=== PATIENT | female | born 1955 | race Hispanic/Latino ===

== ENCOUNTER 2018-03-31 13:08 | Outpatient (CLI) | payer OTHER ==
--- NOTE | 2018-04-01 10:12 | Mammography Report ---
BILATERAL DIGITAL SCREENING MAMMOGRAM with CAD: 03/31/18 CLINICAL: Routine screening. COMPARISON:None available. The patient brought a CD from [facility] but it only contains an image of a mammo-information sheet from 09/17/16. No images are included on the CD. FINDINGS: The breasts are heterogeneously dense, which may obscure small masses. A left asymmetry with architectural distortion on the MLO view and possible correlation on the CC view requires comparison with a prior mammogram or additional imaging.No suspicious calcifications.The right breast is negative. IMPRESSION: Left asymmetry requiring further evaluation. BI-RADS CATEGORY: 0 -- Additional Evaluation Required RECOMMENDATION: Comparison with a previous mammogram. We will attempt to obtain a prior mammogram for comparison. If we do not obtain a prior mammogram within 30 days, a revised report will be issued recommending a recall for additional imaging. Please be advised that the patient should not schedule an appointment for return until adequate time (at least 2 weeks) has passed for us to obtain the prior mammogram. ACR BI-RADS MAMMOGRAPHIC CODES: 0 = Needs additional imaging evaluation; 1 = Negative; 2 = Benign; 3 = Probably benign; 4 = Suspicious; 5 = Malignant; 6 = Known biopsy-proven malignancy COMMENT: 1. Dense breast tissue, i.e., adenosis, fibrocystic changes, etc., may obscure an underlying neoplasm. 2. Approximately 10% of cancers are not detected with mammography. 3. A negative mammography report should not delay biopsy if a clinically suspicious mass is present. COMMENT: Patient follow-up letters are generated via our [employer] application.
== END 2018-03-31 13:09 | disposition home or self-care (01) ==
LOC: SPVWC 13:08
PROVIDERS: ATTEND Internal Medicine
DX: Z12.31 Encounter for screening mammogram for malignant neoplasm of breast (principal)
CPT/HCPCS: 77067

== ENCOUNTER 2018-05-02 12:38 | Observation (INO) | payer OTHER ==
[2018-05-02] MEDS ORDERED: SODIUM CHLORIDE FLUSH SYRINGE 10 ML IV PRN (13:02)
[2018-05-02] MEDS ORDERED: ZOFRAN IV PRN (13:02)
[2018-05-02] MEDS ORDERED: TYLENOL PO PRN (13:02)
[2018-05-02] MEDS ORDERED: PROVENTIL IH PRN (13:02)
--- NOTE | 2018-05-02 13:02 | History and Physical Report ---
History of Present Illness Chief complaint: I feel weak History of present illness: 62 YO Female with HTN, Anemia, Asthma, OA admitted directly to hospitalist service at the request of Dr. Harkins for Symptomatic Anemia. Pt states that she has experienced weakness for the past 3 weeks, with persistent symptoms over the past 1 week. Pt seen and evaluated in her PCP's office and was found to have a hemoglobin of 6.2. Pt seen and evaluated upon arrival and found to have symptomatic anemia suspected secondary to Iron Deficiency. Pt admitted to medical floor. Pt denies fever, chills, CP, Palpitations, NVD, Syncope, BRBPR, unintentional weight loss, or night sweats. Past History Past Medical History: anemia, arthritis, hypertension Past Surgical History: Other (EGD, Colonoscopy) Social history: . denies: smoking, alcohol abuse, prescription drug abuse Family history: no significant family history, other (reviewed) Medications and Allergies Allergies Allergy/AdvReac Type Severity Reaction Status Date / Time Penicillins AdvReac Vomiting Verified 05/02/18 13:30 Review of Systems Constitutional: fatigue, weakness, no weight loss, no weight gain, no fever, no chills Ears, nose, mouth and throat: no ear pain, no ear discharge, no tinnitis, no decreased hearing, no nose pain, no nasal congestion, no nasal discharge Breasts: no change in shape, no swelling, no mass Cardiovascular: no chest pain, no orthopnea, no palpitations, no rapid/ irregular heart beat, no edema, no shortness of breath Respiratory: no cough, no cough with sputum, no excessive sputum, no hemoptysis , no shortness of breath Gastrointestinal: no abdominal pain, no nausea, no vomiting, no constipation, no hematemesis, no coffee ground emesis, no BRBPR, no melena, no hematochezia, no loss of appetite, no early satiety, no heartburn, no excessive gas, no jaundice, no dyspepsia/bloating Genitourinary Female: no pelvic pain, no flank pain, no menorrhagia, no dysuria Rectal: no pain, no incontinence, no bleeding Musculoskeletal: no neck stiffness, no neck pain, no shooting arm pain, no arm numbness/tingling, no low back pain Integumentary: no rash, no pruritis, no redness, no sores, no wounds Neurological: no paralysis, no weakness, no parathesias, no numbness, no tingling, no seizures Psychiatric: no anxiety, no memory loss, no change in sleep habits, no sleep disturbances, no insomnia, no hypersomnia, no change in appetite Endocrine: no cold intolerance, no heat intolerance, no polyphagia, no excessive thirst, no polydipsia, no polyuria, no nocturia Hematologic/Lymphatic: no easy bruising, no easy bleeding, no lymphadenopathy, no lymphedema Allergic/Immunologic: no urticaria, no allergic rhinitis, no wheezing Exam - Constitutional General appearance: Present: mild distress - EENT Eyes: Present: PERRL ENT: hearing intact, clear oral mucosa - Neck Neck: Present: supple, normal ROM - Respiratory Respiratory effort: normal Respiratory: bilateral: CTA - Cardiovascular Heart Sounds: Present: S1 & S2. Absent: rub, click - Extremities Extremities: pulses symmetrical, No edema Peripheral Pulses: within normal limits - Abdominal General gastrointestinal: Present: soft, non-tender, non-distended, normal bowel sounds Female genitourinary: Present: normal - Integumentary Integumentary: Present: clear, warm, dry - Musculoskeletal Musculoskeletal: gait normal, strength equal bilaterally - Psychiatric Psychiatric: appropriate mood/affect, intact judgment & insight - Neurologic Neurologic: CNII-XII intact, moves all extremities Results - Labs CBC & Chem 7: 05/02/18 15:34 05/02/18 15:34 Assessment and Plan - Patient Problems (1) Symptomatic anemia Current Visit: Yes Status: Acute Plan to address problem: PRBC transfusion, serial cbc, supportive care, Outpatient workup as per PCP (2) HTN (hypertension) Current Visit: Yes Status: Acute Plan to address problem: Monitor bp q shift, resume home medication. Pt may take her home medication (3) Arthritis Current Visit: Yes Status: Acute Plan to address problem: Resume home medication. Pt may take her home medication (4) DVT prophylaxis Current Visit: Yes Status: Acute Plan to address problem: SCD to BLE while in bed.
[2018-05-02] MEDS ORDERED: NACL 0.9% 500 ML 500 ML IV ONE ×2 (15:00→18:00)
[2018-05-02 15:54] LABS: Basophils # (Auto) 0.1 K/mm3 (0.0-0.1); Basophils % (Auto) 1.1 % (0.0-1.8); Eosinophils # (Auto) 0.3 K/mm3 (0.0-0.4); Eosinophils % (Auto) 5.2 % (0.0-4.3); Hematocrit 20.8 % (30.3-42.9); Hemoglobin 6.5 gm/dl (10.1-14.3); Lymphocytes # (Auto) 1.7 K/mm3 (1.2-5.4); Lymphocytes % (Auto) 26.7 % (13.4-35.0); Mean Corpuscular HGB Conc 31 % (30-34); Mean Corpuscular Hemoglobin 22 pg (28-32); Mean Corpuscular Volume 69 fl (79-97); Monocytes # (Auto) 0.8 K/mm3 (0.0-0.8); Monocytes % (Auto) 12.2 % (0.0-7.3); Platelet Count 332 K/mm3 (140-440); Red Cell Distribution Width 17.4 % (13.2-15.2)
[2018-05-02 16:13] LABS: Alanine Aminotransferase 17 units/L (7-56); Albumin 4.3 g/dL (3.9-5); BUN/Creatinine Ratio 17; Blood Urea Nitrogen 12 mg/dL (7-17); Hemolysis Index 1
[2018-05-02] MEDS: SODIUM CHLORIDE FLUSH SYRINGE 10 ML IV SCH (23:35)
[2018-05-02] MEDS: PEPCID PO SCH (23:35)
[2018-05-03 10:45] LABS: Hematocrit 33.2 % (30.3-42.9); Hemoglobin 11.1 gm/dl (10.1-14.3)
[2018-05-03] MEDS: SODIUM CHLORIDE FLUSH SYRINGE 10 ML IV SCH (10:46)
[2018-05-03] MEDS: PEPCID PO SCH (10:46)
--- NOTE | 2018-05-03 12:09 | Discharge Summary ---
Providers - Providers Date of Admission: 05/02/18 14:23 Date of discharge: 05/03/18 Attending physician: HOMER GUERRERO Primary care physician: TATE HARKINS Hospitalization Condition: Stable Hospital course: Patient is a 62 yo woman with HTN, Anemia, Asthma, OA admitted directly to hospitalist service at the request of Dr. Harkins for Symptomatic Anemia with fatique and weakness. She had GI work up. She had negative polisher brass exam but needs repeat Mammogram. -Symptomatic Acute on chronic blood loss microcytic anemia, hgb 6.5 s/p 3 units , now 11.1 Current Visit: Yes Status: Acute Plan to address problem: PRBC transfusion, serial cbc, supportive care, Outpatient workup as per PCP Needs outpatient pill cam, has appointment with GREGORIO Ferrera on saturday Hyponatremia, hypo-osm due to hypovolemia transfused prbc -HTN (hypertension) Current Visit: Yes Status: Acute Plan to address problem: Monitor bp q shift, resume home medication. Pt may take her home medication -Arthritis Current Visit: Yes Status: Acute Plan to address problem: Resume home medication. Pt may take her home medication - DVT prophylaxis Current Visit: Yes Status: Acute Plan to address problem: SCD to BLE while in bed. Disposition: DC-01 TO HOME OR SELFCARE Time spent for discharge: 34 minutes Core Measure Documentation - Palliative Care Palliative Care/ Comfort Measures: Not Applicable - Core Measures Any of the following diagnoses?: none - VTE Discharge Requirements Deep Vein Thrombosis/Pulmonary Embolism Present on Admission: No Has pt received <5 days of overlap therapy or INR<2.0: No Anticoagulant overlap therapy prescribed at discharge: No Contraindication No Overlap Therapy order at DC: Not Indicated Exam - Physical Exam Narrative exam: GEN: WDWN, NAD, Awake, Alert, Orientated x 3 HEENT: NCAT, EOMI, PERRL, OP Clear NECK: supple, no adenopathy, no thyromegaly, no JVD CVS/HEART: RRR, normal S1S2, pulses present bilaterally CHEST/LUNGS: CTA B, Symmetrical chest expansion, good air entry bilaterally GI/Abdomen: soft, NTND, good bowel sounds, no guarding or rebound /Bladder: no suprapubic tenderness, no CVA or paraspinal tenderness EXT/Skin: no c/c/e, no obvious rash MSK: FROM x 4 Neuro: CN 2-12 grossly intact, no new focal deficits Psych: calm - Constitutional Vitals: Temp Pulse Resp BP Pulse Ox 98.1 F 68 18 146/77 98 05/03/18 05:22 05/03/18 05:22 05/03/18 05:22 05/03/18 05:22 05/03/18 05:22 Plan Activity: other (no strenous activity until cleared by pcp) Diet: low salt Additional Instructions: Keep appointment with GREGORIO Ferrera on saturday Follow up with: TATE HARKINS MD [Primary Care Provider] - 7 Days
[2018-05-03 12:34] VITALS: BP 124/59
== END 2018-05-03 13:40 | disposition home or self-care (01) ==
LOC: UNDOADMOB 12:38 → 3A 12:38
PROVIDERS: ADMIT Internal Medicine; ATTEND Internal Medicine
DX: D64.9 Anemia, unspecified (principal); I10 Essential (primary) hypertension; J45.909 Unspecified asthma, uncomplicated; M19.90 Unspecified osteoarthritis, unspecified site
CPT/HCPCS: 36415; 36430; 80053; 85014; 85018; 85025; 86850; 86900; 86901; 86920; G0378; G0379; J7040; P9016

== ENCOUNTER 2019-05-18 11:16 | Outpatient (CLI) | payer OTHER ==
--- NOTE | 2019-05-18 15:43 | Mammography Report ---
DIGITAL SCREENING MAMMOGRAM WITH CAD, 05/18/2019 INDICATION: Routine screening mammography. TECHNIQUE: Digital bilateral 2D mammography was obtained in the craniocaudal and mediolateral obliq ue projections. This examination was interpreted with the benefit of Computer-Aided Detection analysi s. COMPARISON: 03/31/2018, 09/17/2016 FINDINGS: Breast Density: The breasts are heterogeneously dense, which may obscure small masses. There is no evidence of dominant mass, suspicious calcifications or architectural distortion in eithe r breast. No interval change. IMPRESSION: No evidence of malignancy. BI-RADS Category 1: Negative. No mammographic evidence of malignancy. Recommend routine screening m ammography in one year. A "normal" or negative report should not discourage follow up or biopsy of a clinically significant f inding. A written summary of these findings will be mailed to the patient. The patient will be entered into a mammography reporting system which will generate a reminder letter for the patient's next appointmen t at the appropriate interval. The [employer] recommends yearly mammograms starting at age 40 and continuing as l michelle as a woman is in good health. Breast MRI is recommended for women with an approximate 20-25% or greater lifetime risk of breast cancer, including women with a strong family history of breast or ova cam cancer or who have been treated for Hodgkin's disease. Signer Name: Lety Thompson MD Signed: 05/18/2019 3:39 PM Workstation Name: [id number]
== END 2019-05-18 11:17 | disposition home or self-care (01) ==
LOC: SPVWC 11:16
PROVIDERS: ATTEND Internal Medicine
DX: Z12.31 Encounter for screening mammogram for malignant neoplasm of breast (principal); I10 Essential (primary) hypertension; E78.00 Pure hypercholesterolemia, unspecified; J45.909 Unspecified asthma, uncomplicated
CPT/HCPCS: 77067

== ENCOUNTER 2020-06-01 10:56 | Outpatient (CLI) | payer OTHER ==
--- NOTE | 2020-06-01 13:22 | Mammography Report ---
DIGITAL SCREENING MAMMOGRAM WITH CAD, 06/01/2020 INDICATION: Routine screening mammography. TECHNIQUE: Digital bilateral 2D mammography was obtained in the craniocaudal and mediolateral obliq ue projections. This examination was interpreted with the benefit of Computer-Aided Detection analysi s. COMPARISON: Prior mammograms 05/18/2019 and 03/31/2018 FINDINGS: Breast Density: The breasts are heterogeneously dense, which may obscure small masses. There is no evidence of dominant mass, suspicious calcifications or architectural distortion in eithe r breast. There has been no significant change compared with the prior examinations. IMPRESSION: Follow up recommendation: Routine yearly BI-RADS Category 1: Negative. A "normal" or negative report should not discourage follow up or biopsy of a clinically significant f inding. A written summary of these findings will be mailed to the patient. The patient will be entered into a mammography reporting system which will generate a reminder letter for the patient's next appointmen t at the appropriate interval. The [employer] recommends yearly mammograms starting at age 40 and continuing as l michelle as a woman is in good health. Breast MRI is recommended for women with an approximate 20-25% or greater lifetime risk of breast cancer, including women with a strong family history of breast or ova cam cancer or who have been treated for Hodgkin's disease. Signer Name: Aura Baez MD Signed: 06/01/2020 1:17 PM Workstation Name: [id number]
== END 2020-06-01 10:57 | disposition home or self-care (01) ==
LOC: SPVWC 10:56
PROVIDERS: ATTEND Internal Medicine
DX: Z12.31 Encounter for screening mammogram for malignant neoplasm of breast (principal)
CPT/HCPCS: 77067

== ENCOUNTER 2021-07-07 13:22 | Outpatient (CLI) | payer OTHER ==
--- NOTE | 2021-07-07 16:21 | Mammography Report ---
DIGITAL SCREENING MAMMOGRAM WITH CAD, 07/07/2021 CLINICAL INFORMATION / INDICATION: Routine screening mammography. TECHNIQUE: Digital bilateral 2D mammography was obtained in the craniocaudal and mediolateral obliqu e projections. This examination was interpreted with the benefit of Computer-Aided Detection analysis . COMPARISON: 06/01/2020, 05/18/2019, 03/31/2018 FINDINGS: Breast Density: The breasts are heterogeneously dense, which may obscure small masses. No dominant mass, suspicious calcifications, or architectural distortion in either breast. IMPRESSION: No mammographic evidence of malignancy. Follow up recommendation: Routine yearly BI-RADS Category 1: Negative. A "normal" or negative report should not discourage follow up or biopsy of a clinically significant f inding. A written summary of these findings will be mailed to the patient. The patient will be entered into a mammography reporting system which will generate a reminder letter for the patient's next appointmen t at the appropriate interval. The [employer] recommends yearly mammograms starting at age 40 and continuing as l michelle as a woman is in good health. Breast MRI is recommended for women with an approximate 20-25% or greater lifetime risk of breast cancer, including women with a strong family history of breast or ova cam cancer or who have been treated for Hodgkin's disease. Signer Name: Astrid Campoverde MD Signed: 07/07/2021 4:17 PM Workstation Name: [id number]
== END 2021-07-07 13:23 | disposition home or self-care (01) ==
LOC: SPVWC 13:22
PROVIDERS: ATTEND Internal Medicine
DX: Z12.31 Encounter for screening mammogram for malignant neoplasm of breast (principal); N64.89 Other specified disorders of breast
CPT/HCPCS: 77067